=== PATIENT | female | born 1985 | race Caucasian/White ===

== ENCOUNTER 2022-02-04 12:56 | Outpatient (CLI) | payer OTHER ==
[2022-02-04 17:58] LABS: BASOPHILS % (AUTO) 0.2 %; EOSINOPHILS # (AUTO) 0.2 10^3/uL (0.0-0.7); EOSINOPHILS % (AUTO) 2.2 %; HGB - HEMOGLOBIN 13.6 g/dL (12.0-16.0); LYMPHOCYTES # (AUTO) 1.9 10^3/uL (1.5-3.5); LYMPHOCYTES % (AUTO) 19.5 %; MEAN CORPUSCULAR HEMOGLOBIN 28.3 pg (27.0-31.0); MEAN CORPUSCULAR VOLUME 83.2 fL (81.0-99.0); MEAN PLATELET VOLUME 10.9 fL (7.9-10.8); MONOCYTES # (AUTO) 0.4 10^3/uL (0.0-1.0); MONOCYTES % (AUTO) 3.8 %; NEUTROPHILS # (AUTO) 7.3 10^3/uL (1.5-6.6); PLT - PLATELET COUNT 272 10^3/uL (130-450); RED BLOOD COUNT 4.81 10^6/uL (4.20-5.40); RED CELL DISTRIBUTION WIDTH 12.9 % (12.0-15.0); WHITE BLOOD COUNT 9.9 x10^3/uL (4.8-10.8)
[2022-02-05 03:08] LABS: HBsAG SCREEN Negative (Negative); HIV SCREEN 4TH GENERATION Non Reactive (Non Reactive)
[2022-02-05 07:08] LABS: HCV AB <0.1 s/co ratio (0.0-0.9)
[2022-02-05 10:08] LABS: RPR Non Reactive (Non Reactive); VARICELLA-ZOSTER AB IGG 2671 index (Immune >165)
== END 2022-02-04 12:57 | disposition home or self-care (01) ==
LOC: LAB.N 12:56
PROVIDERS: ATTEND Nurse Practitioner Obstetrics & Gynecology
DX: Z36.89 Encounter for other specified antenatal screening (principal)
CPT/HCPCS: 36415; 85025; 86592; 86762; 86787; 86803; 86850; 86900; 86901; 87340; 87389

== ENCOUNTER 2022-03-15 12:21 | Outpatient (CLI) | payer OTHER ==
[2022-03-18 20:07] LABS: AFP MOM 0.59 (.); AFP VALUE 30.6 ng/mL (.); DIA MOM 1.57 (.); DIA VALUE 264.26 pg/mL (.); DSR (BY AGE) 1 IN 171 (.); DSR (SECOND TRIMESTER) 1 IN 43 (.); GEST. AGE ON COLLECTION DATE 18.7 WEEKS (.); GESTAT. AGE METHOD EDD (.); HCG MOM 1.72 (.); HCG VALUE 51489 mIU/mL (.); INSULIN DEP DIABETES No (.); MATERNAL AGE AT EDD 37.4 yr (.); MULTIPLE GESTATION No (.); OPEN SPINA BIFIDA RISK 1 IN 10000 (.); RACE Caucasian (.); RESULTS Report (.); TEST RESULTS *Screen Positive* (.); TRISOMY 18 RISK Not increased (.); UE3 VALUE 1.59 ng/mL (.); WEIGHT 142 lbs (.)
== END 2022-03-15 12:22 | disposition home or self-care (01) ==
LOC: LAB.N 12:21
PROVIDERS: ATTEND Nurse Practitioner Obstetrics & Gynecology
DX: Z13.79 Encounter for other screening for genetic and chromosomal anomalies (principal)
CPT/HCPCS: 36415; 81511

== ENCOUNTER 2022-03-21 14:59 | Outpatient (CLI) | payer OTHER ==
--- NOTE | 2022-03-22 13:23 | Ultrasound Report ---
PROCEDURE: OB Detailed Eval INDICATIONS: SUPERVISION OF OUTSIDE/PRIOR DATING DATA: Last menstrual period (LMP): 11/04/2021. LMP-based estimated date of delivery (CODEY): 08/11/2022. First dating scan (date and location): 01/21/2022, [facility]. Estimated date of delivery (CODEY) from first dating scan: 08/12/2022. The below data below was generated using the clinical CODEY of 08/11/2022 TECHNIQUE: Real-time scanning was performed of the fetus, with image documentation and biometric measurements. Endovaginal scanning: Not performed COMPARISON: None. FINDINGS: General: A single living intrauterine gestation is present. Presentation: Vertex Placenta: Placental position is posterior, without previa. Amniotic fluid index: 18.0 cm, normal for gestational age. heart rate: 153 beats per minute. Maternal cervical canal: Closed and 4.6 cm long; normal length is 2.5 cm or more. biometrics: Biparietal diameter: 4.5 cm, 19 weeks, 5 days Head circumference: 16.3 cm, 19 weeks, 4 days Abdominal circumference: 14.4 cm, 19 weeks, 5 days Femur length: 3.1 cm, 19 weeks, 4 days Estimated gestational age from clinical CODEY: 19 weeks, 3 days Composite gestational age from present scan: 19 weeks, 3 days Estimated weight and percentile: 306 g, 51st percentile Measurement variability in biometric dating: +/- 10 days from 12-20 weeks gestation, +/- 2 weeks from 20-30 weeks gestation, +/- 3 weeks at 30 weeks gestation or later. Anatomic survey: Neuro: Ventricles are normal at less than 10 mm. Cisterna magna is normal at 3-11 mm. Cerebellum i s normal in size and morphology. Nuchal skin fold: Normal at less than 6 mm between 14 and 20 weeks gestational age. Face: Nose and lips, facial profile are normal. Spine: No evidence for spina bifida. Heart: 4-chambered heart is present, with normal ventricular outflow tracts. Diaphragm: Diaphragm is intact. Stomach: Left-sided stomach is present. Kidneys: No hydronephrosis. Normal is less than 5 mm in 2nd trimester, less than 7 mm in 3rd trimester. Cord: 3 vessel cord has orthotopic insertion. Bladder: Normal in size. Extremities: All 4 extremities are visualized. IMPRESSION: 1. Single living intrauterine . 2. Appropriate growth and normal anatomy. 3. Closed cervix and normal amniotic fluid volume. Reviewed by: Domitila Adams MD on 03/22/2022 1:21 PM PST Approved by: Domitila Adams MD on 03/22/2022 1:21 PM PST Station ID: [id number]
== END 2022-03-21 15:00 | disposition home or self-care (01) ==
LOC: DI 14:59
PROVIDERS: ATTEND Nurse Practitioner Obstetrics & Gynecology
DX: Z34.02 Encounter for supervision of normal first pregnancy, second trimester (principal); Z36.89 Encounter for other specified antenatal screening

== ENCOUNTER 2022-03-23 09:48 | Outpatient (CLI) | payer OTHER | END 2022-03-23 09:49 | disposition home or self-care (01) | LOC: LAB 09:48 | PROVIDERS: ATTEND Nurse Practitioner Obstetrics & Gynecology | DX: Z01.89 Encounter for other specified special examinations (principal) | CPT/HCPCS: 36415 ==

== ENCOUNTER 2022-07-05 12:00 | Emergency (ER) | payer OTHER ==
[2022-07-05 12:18] VITALS: BP 110/72
[2022-07-05] MEDS ORDERED: SODIUM CHLORIDE 0.9% 1,000 ML IV STA (12:37)
[2022-07-05 12:46] LABS: BILIRUBIN,URINE NEGATIVE (NEGATIVE); GLUCOSE, URINE (UA) NEGATIVE (NEGATIVE); KETONES,URINE (UA) NEGATIVE (NEGATIVE); LEUKOCYTE ESTERASE, URINE NEGATIVE (NEGATIVE); NITRITE,URINE NEGATIVE (NEGATIVE); OCCULT BLOOD,URINE NEGATIVE (NEGATIVE); PH,URINE 6.5 PH (5.0-7.5); PROTEIN,URINE NEGATIVE (NEGATIVE); UROBILINOGEN,URINE 0.2 (NORMAL) E.U./dL (NORMAL)
[2022-07-05 12:49] LABS: CLARITY,URINE CLEAR (CLEAR)
--- NOTE | 2022-07-05 12:53 | ED Physician Documentation ---
History of Present Illness - Stated complaint Stated Complaint: SOA - Chief complaint Chief Complaint: General - History obtained from History obtained from: Patient - History of Present Illness Timing: Today Pain level max: 0 Pain level now: 0 - Additonal information Additional information: Patient is a 37-year-old female who presents to the emergency department with feeling lightheaded, dizzy and mildly short of breath today at work. She states that she is approximately 35 weeks . No complications with the . No fevers. No chills. She states she has had increased thirst recently. No history of diabetes. Does not use inhalers. She does not vape. She does not smoke. Review of Systems Constitutional: denies: Fever, Chills Nose: denies: Rhinorrhea / runny nose, Congestion Throat: denies: Sore throat Cardiac: denies: Chest pain / pressure Respiratory: denies: Cough GI: reports: Abdominal Pain (states felt a "jamei ascencio contraction" this morning. no vaginal bleeding or fluid leakage.). denies: Vomiting, Diarrhea Skin: denies: Rash Musculoskeletal: denies: Neck pain, Back pain PD PAST MEDICAL HISTORY - Past Medical History Past Medical History: No - Past Surgical History Past Surgical History: No - Allergies Allergies/Adverse Reactions: Allergies Allergy/AdvReac Type Severity Reaction Status Date / Time Sulfa (Sulfonamide Allergy Intermediate Unknown Verified 07/05/22 12:18 Antibiotics) PD ED PE NORMAL - Vitals Vital signs reviewed: Yes - General General: Alert and oriented X 3, No acute distress - HEENT HEENT: PERRL, Moist mucous membranes, Pharynx benign - Neck Neck: Supple, no meningeal sign - Cardiac Cardiac: RRR, No murmur, Strong equal pulses - Respiratory Respiratory: No respiratory distress, Clear bilaterally - Abdomen Abdomen: Soft, Non tender, Non distended - Back Back: No CVA TTP, No spinal TTP - Derm Derm: Warm and dry, No rash - Extremities Extremities: No edema, No calf tenderness / cord - Neuro Neuro: Alert and oriented X 3, distribution coordinator 2-12 intact, No motor deficit, No sensory deficit, Normal speech, Other (Normal cerebellar tests. Normal gait) Eye Opening: Spontaneous Motor: Obeys Commands Verbal: Oriented GCS Score: 15 - Psych Psych: Normal mood, Normal affect Results - Vitals Vitals: Vital Signs - 24 hr 07/05/22 12:16 Temperature 37.2 C Heart Rate 91 Respiratory 20 Rate Blood Pressure 110/72 O2 Saturation 97 Oxygen O2 Source Room air - EKG (time done) 1303 EKG releavant findings:: EKG personally interpreted by author of this note. Relevant findings are: Rate: Rate (enter#) (81) Rhythm: NSR [place]: Normal Intervals: Normal [place] QRS: Normal Ischemia: Normal ST segments - Labs Labs: Laboratory Tests 07/05/22 07/05/22 07/05/22 12:41 12:58 12:58 WBC 11.5 H RBC 4.43 Hgb 11.4 L Hct 35.2 L MCV 79.5 L MCH 25.7 L MCHC 32.4 RDW 14.1 Plt Count 269 MPV 10.1 Neut # (Auto) 8.7 H Lymph # (Auto) 2.0 [place] # (Auto) 0.6 Eos # (Auto) 0.2 Baso # (Auto) 0.0 Absolute Nucleated RBC 0.00 Nucleated RBC % 0.0 Sodium 134 L Potassium 3.8 Chloride 103 Carbon Dioxide 21 Anion Gap 10.0 BUN 11 Creatinine 0.4 Estimated GFR (MDRD) 180 Glucose 88 Calcium 9.4 Total Bilirubin 1.0 AST 20 ALT 13 Alkaline Phosphatase 111 Total Protein 6.9 Albumin 3.1 L Globulin 3.8 Albumin/Globulin Ratio 0.8 L Lipase 34 Urine Color YELLOW Urine Clarity CLEAR Urine pH 6.5 Ur Specific Sod <=1.005 Urine Protein NEGATIVE Urine Glucose (UA) NEGATIVE Urine Ketones NEGATIVE Urine Occult Blood NEGATIVE Urine Nitrite NEGATIVE Urine Bilirubin NEGATIVE Urine Urobilinogen 0.2 (NORMAL) Ur Leukocyte Esterase NEGATIVE Ur Microscopic Review NOT INDICATED Urine Culture Comments NOT INDICATED PD Medical Decision Making - ED course Complexity details: reviewed results, re-evaluated patient, considered differential, d/w patient ED course: CBC shows a mild leukocytosis, consistent with . Mild anemia. Chemistry shows a mild hyponatremia. Urinalysis does not show any acute abnormalities. Given IV fluids and does feel better. OB came to the emergency department and monitor to the mother and fetus. There is no evidence of active labor at this time. We will have the patient rest today at home and follow-up with her OB for further care. Patient is very well-appearing, nontoxic. Afebrile. No hypoxia. No respiratory distress. No evidence of PE. No chest pain. Patient counseled regarding signs and symptoms for which I believe and urgent re-evaluation would be necessary. Patient with good understanding of and agreement to plan and is comfortable going home at this time This document was made in part using voice recognition software. While efforts are made to proofread this document, sound alike and grammatical errors may occur. Departure - Departure Disposition: 01 Home, Self Care Clinical Impression: Light-headed feeling Condition: Good Instructions: ED Dizziness UKO Follow-Up: Soraida Mayfield CNM, [employer] [Provider Admit Priv/Credential] - Within 1 week Comments: The cause of your symptoms is unclear today. Your laboratory testing, electrolytes, urinalysis and EKG did not show any acute abnormalities. OB states that you do not show any signs of labor. Please follow-up with your OB for further care. Return if you worsen. Forms: Activity restrictions Discharge Date/Time: 07/05/22 14:00
[2022-07-05 13:05] LABS: BASOPHILS % (AUTO) 0.2 %; EOSINOPHILS # (AUTO) 0.2 10^3/uL (0.0-0.7); EOSINOPHILS % (AUTO) 1.7 %; HCT - HEMATOCRIT 35.2 % (37.0-47.0); HGB - HEMOGLOBIN 11.4 g/dL (12.0-16.0); LYMPHOCYTES % (AUTO) 17.2 %; MEAN CORPUSCULAR HEMOGLOBIN 25.7 pg (27.0-31.0); MEAN CORPUSCULAR HGB CONC 32.4 g/dL (32.0-36.0); MEAN CORPUSCULAR VOLUME 79.5 fL (81.0-99.0); MEAN PLATELET VOLUME 10.1 fL (7.9-10.8); MONOCYTES # (AUTO) 0.6 10^3/uL (0.0-1.0); MONOCYTES % (AUTO) 4.9 %; NEUTROPHILS # (AUTO) 8.7 10^3/uL (1.5-6.6); NEUTROPHILS % (AUTO) 75.4 %; PLT - PLATELET COUNT 269 10^3/uL (130-450); RED BLOOD COUNT 4.43 10^6/uL (4.20-5.40); RED CELL DISTRIBUTION WIDTH 14.1 % (12.0-15.0); WHITE BLOOD COUNT 11.5 x10^3/uL (4.8-10.8)
[2022-07-05 13:17] LABS: ALBUMIN 3.1 g/dL (3.2-5.5); ALBUMIN/GLOBULIN RATIO 0.8 (1.0-2.2); CALCIUM 9.4 mg/dL (8.5-10.3); CREATININE 0.4 mg/dL (0.4-1.0); POTASSIUM 3.8 mmol/L (3.5-5.0); TOTAL PROTEIN 6.9 g/dL (6.7-8.2)
--- NOTE | 2022-07-08 14:39 | PROCEDURE REPORT ---
- HPI Diagnosis/Indication for NST: Other Current EDU 08/11/22 Gestation 34 Weeks and 5 Days 4 Para 2 Vital Signs Temperature 37.2 C 07/05/22 12:16 Heart Rate 91 07/05/22 12:16 Respiratory Rate 20 07/05/22 12:16 Blood Pressure 110/72 07/05/22 12:16 O2 Saturation 97 07/05/22 12:16 Temperature 37.2 C 07/05/22 12:16 Heart Rate 91 07/05/22 12:16 Respiratory Rate 20 07/05/22 12:16 Blood Pressure 110/72 07/05/22 12:16 O2 Saturation 97 07/05/22 12:16 If not protocol: Oxygen Flow, liters/minute - NST Procedure NST Procedure Start Date 07/05/22 Start Time 12:30 Stop Time 12:56 Vibroacoustic Stimulation Used No Patient States Movement Yes - Results and Plan Plan: NST reactive. FHR baseline 130s, moderate variability, + accels, no decels No contractions appreciated via tocometry
== END 2022-07-05 14:00 | disposition home or self-care (01) ==
LOC: ED 12:00
DX: O26.893 Other specified pregnancy related conditions, third trimester (principal); R42 Dizziness and giddiness; Z3A.35 35 weeks gestation of pregnancy
CPT/HCPCS: 36415; 80053; 81001; 81003; 83690; 85025; 87086; 93005; 99283; 99284

== ENCOUNTER 2022-08-12 10:13 | Inpatient (IN) | payer OTHER ==
[2022-08-12] MEDS ORDERED: OXYTOCIN 10 UNIT/ML VIAL ONE (11:12)
[2022-08-12] MEDS ORDERED: TRANEXAMIC ACID IN NACL 1,000 MG/100 ML BAG IV PRN (11:43)
[2022-08-12] MEDS ORDERED: OXYTOCIN 10 UNIT/ML VIAL IM PRN (11:43)
[2022-08-12] MEDS ORDERED: hydrALAZINE INJ 20 MG/ML VIAL IVP PRN ×2 (11:43)
[2022-08-12] MEDS ORDERED: miSOPROStoL 200 MCG TABLET PR PRN (11:43)
[2022-08-12] MEDS ORDERED: CARBOPROST TROMETHAMINE 250 MCG/ML AMP IM PRN (11:43)
[2022-08-12] MEDS ORDERED: LABETALOL 20 MG/4 ML SYRINGE IVP PRN ×3 (11:43)
[2022-08-12] MEDS ORDERED: METHYLERGONOVINE 0.2 MG/ML VIAL IM PRN (11:43)
[2022-08-12] MEDS ORDERED: lidocaine 1% 20 ML MDV ID PRN (11:43)
[2022-08-12] MEDS ORDERED: NIFEdipine 10 MG CAPSULE PO PRN (11:43)
[2022-08-12] MEDS ORDERED: OXYTOCIN/SODIUM CHLORIDE 500 ML IV PRN (11:43)
[2022-08-12] MEDS ORDERED: TERBUTALINE 1 MG/ML VIAL SUBQ PRN (11:43)
[2022-08-12] MEDS ORDERED: SODIUM CHLORIDE FLUSH 0.9% 10 ML SYRINGE IVP PRN (11:43)
[2022-08-12] MEDS ORDERED: fentaNYL 100 MCG/2 ML VIAL IVP PRN (11:43)
[2022-08-12] MEDS ORDERED: miSOPROStoL 200 MCG TABLET BC PRN (11:43)
[2022-08-12] MEDS ORDERED: HYDROCORTISONE 1% CREAM 28 GM TUBE PR PRN (11:58)
[2022-08-12] MEDS ORDERED: WITCH HAZEL/GLYCERIN 1 PAD TOP PRN (11:58)
[2022-08-12] MEDS ORDERED: SODIUM CHLORIDE FLUSH 0.9% 10 ML SYRINGE IVP SCH (12:00)
--- NOTE | 2022-08-12 12:10 | DELIVERY NOTE ---
Delivery Note - Labor Labor: positive: Spontaneous - Delivery Method Delivery Method: positive: Spontaneous vaginal delivery - Presentation Presentation: positive: Vertex, CARLENE - left occiput anterior - Nuchal Cord Nuchal Cord: positive: Present - Amniotic Fluid Description Amniotic Fluid Description: positive: Clear - Episiotomy Type Episiotomy Type: positive: None - Laceration Laceration: positive: None - Delivery Outcome Delivery Outcome: positive: Livebirth - : positive: Placed in direct skin contact with mother, Stimulated, Warmed, [place] used [place] sex: positive: Male - Cord Cord: positive: 3 vessels - Placenta Placenta: positive: Intact, Spontaneous - Estimated Blood Loss Estimated Blood Loss (in cc): 100 - Post Delivery Events Post Delivery Events: positive: No post delivery events - Delivery Comments (Free Text/Narrative) Delivery Comments (Free Text/Narrative): : This 37yo @ 40.1wks gestation by LMP c/w 11.0wks U/S who presented on 08/12/2022 in active labor. Cervix was 7/100/-2 and vertex with intact membranes. FHR pattern demonstrated Category I pattern throughout labor. Normal labor course. SROM occurred at 1114 and was noted to be a large amount of clear fluid. Pt progressed to c/c/ and spontaneously pushing at approximately 1120. Normal SVB of viable male on 08/12/2022 @ 1124. Nuchal cord x 1 was delivered through. The was placed on maternal abdomen, stimulated, dried, and placed skin to skin. Apgars were 8/9 at 1 and 5 minutes respectively. The umbilical cord was allowed to stop pulsating at which time it was doubly clamped by CNM and cut by FOB. Cord blood was obtained. Placenta delivered spontaneously and intact at 1146. EBL 100mL. Fourth stage: Uterine fundus firm and there is no excessive bleeding. The perineum, vagina, and cervix were inspected and noted to be intact. initiated. Family bonding well. Both mother and baby were left in stable condition.
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
[2022-08-12] MEDS: ACETAMINOPHEN 500 MG TABLET PO SCH (21:09)
[2022-08-12] MEDS: LACTATED RINGERS 1,000 ML IV SCH (21:10)
[2022-08-12] MEDS: DOCUSATE SODIUM 100 MG CAPSULE PO SCH (21:10)
[2022-08-12] MEDS: IBUPROFEN 800 MG TABLET PO SCH (21:10)
[2022-08-13] MEDS: IBUPROFEN 800 MG TABLET PO SCH ×3 (02:46→11:08)
[2022-08-13] MEDS: ACETAMINOPHEN 500 MG TABLET PO SCH ×2 (06:28→11:02)
[2022-08-13] MEDS: LACTATED RINGERS 1,000 ML IV SCH ×2 (07:56→11:01)
[2022-08-13 10:00] VITALS: BP 127/82
[2022-08-13] MEDS: DOCUSATE SODIUM 100 MG CAPSULE PO SCH (11:08)
--- NOTE | 2022-08-13 15:30 | Labor Flowsheet ---
Labor Flowsheet Datetime Report Generated by CPN: 08/13/2022 15:29 Datetime: 08/13/2022 09:57 VITAL SIGNS NBP Sys/Sarah/Mean (mmHg): 127 : 82 : 92 Pulse: 90 Datetime: 08/12/2022 22:59 SpO2 (%): 99 Datetime: 08/12/2022 15:30 VAGINAL EXAM Membranes Ruptured Date/Time: 08/12/2022 11:10
--- NOTE | 2022-08-16 17:42 | Discharge Plan ---
Discharge Plan Problem Reviewed?: Yes Disposition: Home, Self Care Condition: Good Diet: Regular Activity Restrictions: No Restrictions Shower Restrictions: No Driving Restrictions: No Weight Bearing: Full Weight Instruction Topics: Vaginal After No Smoking: If you smoke, Please STOP! Call for help. Follow-up with: Soraida Mayfield CNM, ARNP [Provider Admit Priv/Credential] -
--- NOTE | 2022-08-16 17:50 | DISCHARGE SUMMARY ---
Discharge Summary Condition at Discharge: Good Discharge Disposition: 01 Home, Self Care - HOSPITAL COURSE Hospital Course: Date of Admission: 08/12/2022 Date of Discharge: 08/13/2022 Diagnosis on Admission: 1. 37yo @ 40.1wks gestation 2. Active labor 3. FHR Category I 4. GBS negative Diagnosis on Discharge: 1. 37yo PPD#1 s/p TSVB viable male 2. 3. Normal recovery Brief History: She is a patient of [facility] who presented on 08/16/2022 in active labor. She was found to contract every 2-4 minutes and her SVE was 7/100/-2 and vertex with intact membranes. FHR pattern demonstrated Category I pattern throughout labor. She was admitted for expectant management. She progressed spontaneously to deliver a viable male on 08/12/2022 at 1124 over intact perineum. Apgars were 8/9 at 1 and 5 minutes respectively. EBL 1 00mL. She has been doing well in her course. She is ambulating and tolerating a regular diet. She is urinating without difficulty and her lochia is normal. Her pain is well controlled with oral medications. She is without difficulty and she is bonding well with her baby. She will be discharged home today on day #1 with instructions to continue taking her prenat al vitamin while and to continue taking ibuprofen and tylenol over the counter as needed for pain management. She intends to follow up with myself at [facility] in 1 week for routine care or sooner if needed. She has been given precautions to call if she has any worsening fevers, chills, abdominal pain, increased vaginal bleeding or foul smelling vaginal loch ia. Physical exam: Normocephalic, atraumatic. Heart RRR w/o M/G/R, lungs CTAB, abdomen soft and nontender. Perineum intact, light lochia rubra. Mood is good. - ALLERGIES Allergies/Adverse Reactions: Allergies Allergy/AdvReac Type Severity Reaction Status Date / Time Sulfa (Sulfonamide Allergy Intermediate Unknown Verified 07/05/22 12:18 Antibiotics)
== END 2022-08-13 14:56 | disposition home or self-care (01) | DRG 807 ==
LOC: WFO 10:13 → FBP 10:15 → WFO 11:42 → FBP 11:43
PROVIDERS: ADMIT Nurse Practitioner Obstetrics & Gynecology; ATTEND Nurse Practitioner Obstetrics & Gynecology
PROC: 10E0XZZ Delivery of Products of Conception, External Approach (ICD-10-PCS; principal; 2022-08-12)
DX: O69.81X0 Labor and delivery complicated by cord around neck, without compression, not applicable or unspecified (principal); Z37.0 Single live birth; Z3A.40 40 weeks gestation of pregnancy
CPT/HCPCS: 99215; A9270

== ENCOUNTER 2022-11-17 09:50 | Outpatient (CLI) | payer OTHER ==
--- NOTE | 2022-11-17 10:26 | XRAY Report ---
PROCEDURE: Lumbar Spine 2 View INDICATIONS: RADICULOPATHY TECHNIQUE: 2 views of the lumbar spine were acquired. COMPARISON: None. FINDINGS: Bones: 5 [id number] vertebrae are present. Normal alignment of the lumbar spine. No vertebral b usha compression fractures. No suspicious bony lesions. Soft tissues: Overlying bowel gas pattern is normal. No suspicious soft tissue calcifications. IMPRESSION: No significant degenerative changes. No acute compression fractures. Reviewed by: Jerel Temple MD on 11/17/2022 10:25 AM PDT Approved by: Jerel Temple MD on 11/17/2022 10:25 AM PDT Station ID: [id number]
--- NOTE | 2022-11-18 10:51 | XRAY Report ---
PROCEDURE: Knee 3 View RT INDICATIONS: KNEE PAIN TECHNIQUE: 3 views of the right knee(s) were acquired. COMPARISON: None. FINDINGS: Bones: No fractures or dislocations. No patella subluxation. Joint spaces are well-preserved. No blanco spicious bony lesions. Soft tissues: No knee joint effusion. No suspicious soft tissue calcifications or masses. IMPRESSION: No acute bony abnormality. No significant joint effusion. Joint spaces are well-preserved. Reviewed by: Will Lo MD on 11/18/2022 10:50 AM PDT Approved by: Will Lo MD on 11/18/2022 10:50 AM PDT Station ID: [id number]
== END 2022-11-17 09:51 | disposition home or self-care (01) ==
LOC: DI 09:50
PROVIDERS: ATTEND Physician Assistant Medical
DX: M54.16 Radiculopathy, lumbar region (principal); M25.561 Pain in right knee

== ENCOUNTER 2023-02-20 09:25 | Emergency (ER) | payer OTHER ==
[2023-02-20 09:59] VITALS: BP 117/68; O2SAT 97
--- NOTE | 2023-02-20 10:16 | ED Physician Documentation ---
PD HPI OPHTHO - Stated complaint Stated Complaint: RT EYE LAC - Chief complaint Chief Complaint: Heent - History obtained from History obtained from: Patient - Additional information Additional information: Patient is a 37-year-old female presenting for evaluation of right eye irritation for the past 2 days. Patient states that on Monday she accidentally hit her eye with a piece of copper wire that she was using to make a project with [employer] ???. She has been told that she has astigmatism but does not wear contacts or glasses. She says the eye has been photosensitive since that time and she has had some tearing from the eye including crusty yellow discharge this morning that she needed to wash away with a washcloth. Review of Systems Eyes: reports: Photophobia, Irritation PD PAST MEDICAL HISTORY - Past Medical History Past Medical History: Yes Musculoskeletal: Other Other Past Medical History: Spondylosis - Past Surgical History Past Surgical History: No - Present Medications Home Medications: Ambulatory Orders Medication Instructions Recorded Confirmed Erythromycin Base [Erythromycin 1 appful OP 5XD 7 Days #1 gm 02/20/23 Ophthalmic Ointment] Ibuprofen [Motrin] 1 tablet PO Q8H PRN 02/20/23 02/20/23 Oxycodone HCl/Acetaminophen 1 each PO DAILY 02/20/23 02/20/23 [Percocet 5-325 mg Tablet] - Allergies Allergies/Adverse Reactions: Allergies Allergy/AdvReac Type Severity Reaction Status Date / Time Sulfa (Sulfonamide Allergy Intermediate Unknown Verified 02/20/23 09:45 Antibiotics) - Social History Does the pt smoke?: No Smoking Status: Never smoker PD ED PE NORMAL - General General: Alert and oriented X 3, No acute distress, Well developed/nourished - HEENT HEENT: Atraumatic, PERRL, EOMI, Moist mucous membranes, Pharynx benign - Neck Neck: Supple, no meningeal sign - Respiratory Respiratory: No respiratory distress - Derm Derm: Warm and dry - Neuro Neuro: Normal speech PD ED PE EXPANDED - Eyes Eyes: PERRL, EOMI, Normal eyelids, No eyelid FB (everted), Injected conj/sclera, Normal corneas, Anterior chambers clear, Other (R eye IOP WNL (15)). No: Eyelid injury, Eyelid swelling, Eyelid erythema, Subconj hemorrhage, Corneal FB, Corneal abrasion, Corneal ulcer, Fluorescein uptake, Hyphema Results - Vitals Vitals: Vital Signs - 24 hr 02/20/23 09:30 Temperature 36 C L Heart Rate 83 Respiratory 16 Rate Blood Pressure 117/68 O2 Saturation 97 Oxygen O2 Source Room air PD Medical Decision Making - ED course ED course: Patient is a 37-year-old female presenting for evaluation of right eye irritation. No signs of corneal abrasion or ulceration. No signs of foreign body. After receiving 2 drops of proparacaine into the right eye patient reports improvement in her vision and visual acuity was repeated and is significantly improved.No signs of globe injury. Normal intraocular pressure. She does have significant conjunctival injection And has had crusting and drainage from the eye. Will cover with antibiotic ointments. She does not wear contacts. Have also recommended that she have close follow-up with ophthalmology. She is also advised on strict return precautions. No signs of periorbital or orbital cellulitis at this time. Departure - Departure Disposition: 01 Home, Self Care Clinical Impression: Irritation of right eye Condition: Stable Instructions: ED Conjunctivitis Nonspecific Follow-Up: Joshua Bunn MD [Provider Admit Priv/Credential] - Within 3 Days Prescriptions: Erythromycin Base [Erythromycin Ophthalmic Ointment] 1 appful OP 5XD 7 Days #1 gm Comments: I have sent a prescription for an antibiotic ointment to [facility] in [place]. I am hopeful this will help with the discharge you are having from the eye. At this time I do not see signs of a scratch or an abrasion or ulcer on your cornea. The pressure in your eye is also normal and I also do not see signs of a foreign body in the eye. I do recommend you have close follow-up with an tilt tray driver and have listed the name of 1 here To call today to arrange for close follow-up early this week as you have had trauma to the eye. Please return to the emergency department if you develop any worsening symptoms such as worsening vision, redness, swelling, increased pain or have any other concerns. Forms: PCP List Discharge Date/Time: 02/20/23 10:22
== END 2023-02-20 10:22 | disposition home or self-care (01) ==
LOC: ED 09:25
DX: H57.89 Other specified disorders of eye and adnexa (principal)
CPT/HCPCS: 99282; 99283

== ENCOUNTER 2023-06-26 20:01 | Emergency (ER) | payer OTHER ==
[2023-06-26 20:18] VITALS: O2SAT 97
--- NOTE | 2023-06-26 20:56 | ED Physician Documentation ---
PD HPI URI - Stated complaint Stated Complaint: COUGH/CONGESTION - Chief complaint Chief Complaint: Resp - History obtained from History obtained from: Patient - History of Present Illness Timing - onset: How many weeks ago (1) Timing duration: Weeks (1) Timing details: Abrupt onset, Still present (was improving some but then increaseed cough and sputum, with marked pains in chest muscles with coughing, unrelenting cough at times.) Associated symptoms: Fever, Chills, Nasal congestion, Productive cough, Chest pain, Dyspnea. No: Sore throat Contributing factors: No: Immunocompromised, COPD / asthma Similar symptoms before: Has not had sx before PD PAST MEDICAL HISTORY - Past Medical History Past Medical History: Yes Musculoskeletal: Fibromyalgia - Past Surgical History Past Surgical History: No - Present Medications Home Medications: Ambulatory Orders Medication Instructions Recorded Confirmed Albuterol 2.5 mg INH Q4H PRN #30 ml 06/26/23 Albuterol Sulf [Ventolin Hfa 1 - 2 puffs INH Q4HR PRN #1 each 06/26/23 Inhaler] Amoxicillin 500 mg PO TID #15 cap 06/26/23 Benzonatate [Tessalon] 100 mg PO TID PRN #20 cap 06/26/23 Cyclobenzaprine [Flexeril] 5 mg PO TID PRN 06/26/23 06/26/23 HYDROcod/ACETAM 5/325 [Acworth 5/325] 1 ea PO Q6H PRN #10 tablet 06/26/23 dexAMETHasone [Decadron] 4 mg PO DAILY #5 tablet 06/26/23 - Allergies Allergies/Adverse Reactions: Allergies Allergy/AdvReac Type Severity Reaction Status Date / Time Sulfa (Sulfonamide Allergy Intermediate Unknown Verified 06/26/23 20:11 Antibiotics) onion Allergy Itching Verified 06/26/23 20:11 tomato Allergy Itching Verified 06/26/23 20:11 - Social History Does the pt smoke?: No Smoking Status: Never smoker Does the pt drink ETOH?: No PD ED PE NORMAL - Vitals Vital signs reviewed: Yes - General General: Alert and oriented X 3, Well developed/nourished, Other (grimaces in pain when coughs due to chest muscles. ) - HEENT HEENT: Pharynx benign - Neck Neck: Supple, no meningeal sign, No adenopathy - Cardiac Cardiac: RRR (regular and mild tachycardia. ), No murmur - Respiratory Respiratory: No respiratory distress. No: Clear bilaterally (some central wheezing noted with cough. No coarse sounds. ) - Abdomen Abdomen: Soft, Non tender - Derm Derm: Normal color, Warm and dry - Extremities Extremities: No edema, No calf tenderness / cord Results - Vitals Vitals: Oxygen O2 Source Room air - Labs Labs: Laboratory Tests 06/26/23 20:13 Nasal Adenovirus (PCR) NOT DETECTED Nasal B. parapertussis DNA (PCR) NOT DETECTED Nasal Coronavir 229E PCR NOT DETECTED Nasal Coronavir HKU1 PCR NOT DETECTED Nasal Coronavir NL63 PCR NOT DETECTED Nasal Coronavir OC43 PCR NOT DETECTED Nasal Enterovir/Rhinovir PCR DETECTED A Nasal Influenza B PCR NOT DETECTED Nasal Influenza A PCR NOT DETECTED Nasal Parainfluen 1 PCR NOT DETECTED Nasal Parainfluen 2 PCR NOT DETECTED Nasal Parainfluen 3 PCR NOT DETECTED Nasal Parainfluen 4 PCR NOT DETECTED Nasal RSV (PCR) NOT DETECTED Nasal B.pertussis DNA PCR NOT DETECTED Nasal C.pneumoniae (PCR) NOT DETECTED Justin Human Metapneumo PCR NOT DETECTED Nasal M.pneumoniae (PCR) NOT DETECTED Nasal SARS-CoV-2 (PCR) NOT DETECTED PD Medical Decision Making - ED course Complexity details: reviewed results (positive for rhinovirus, but I would also still think likely at this point has developed a sedoncary bronchitis. so antibiotics as well. ), considered differential (has had URI symptoms for a week or so, with now increased cough and sputum production. Seems initial viral syndrome but consider secondary bronchitis has developed with sumptoms. Can treat with MDI and tessalon, hyedrocodone for cough and pains, as she has had marked chest pains with coughing.), d/w patient Departure - Departure Disposition: 01 Home, Self Care Clinical Impression: Acute bronchitis due to Rhinovirus Condition: Stable Record reviewed to determine appropriate education?: Yes Instructions: ED URI Viral W Wheezing Follow-Up: Martina Casarez ARNP [Primary Care Provider] - Prescriptions: Albuterol Sulf [Ventolin Hfa Inhaler] 1 - 2 puffs INH Q4HR PRN #1 each PRN Reason: Shortness Of Air/Wheezing Albuterol 2.5 mg INH Q4H PRN #30 ml PRN Reason: Wheezing Amoxicillin 500 mg PO TID #15 cap dexAMETHasone [Decadron] 4 mg PO DAILY #5 tablet HYDROcod/ACETAM 5/325 [Acworth 5/325] 1 ea PO Q6H PRN #10 tablet PRN Reason: Pain Benzonatate [Tessalon] 100 mg PO TID PRN #20 cap PRN Reason: Cough Comments: Your respiratory viral panel test was positive for rhinovirus which does cause a lot of bronchial symptoms and wheezing. Not quite as bad as RSV but similar. He was negative for COVID and flu. I would have you use albuterol 4 times daily for the next several days to week to help with your breathing. Decadron to help with bronchial inflammation. Your symptoms are likely mostly viral although this could be the remnants of the virus initially. If you have developed bacterial bronchitis as well, then you likely will continue with symptoms and perhaps more sputum etc. If this evolves more bron chial, then add an antibiotic but at this point do the inhaler or nebulizer along with a steroid and medication for cough. I sent new prescriptions to preferred pharmacy. Forms: PCP List Discharge Date/Time: 06/26/23 22:38
[2023-06-26] MEDS: HYDROcod/ACETAM 5/325 MG TABLET PO STA (21:44)
[2023-06-26] MEDS: BENZONATATE 100 MG CAPSULE PO STA (21:44)
[2023-06-26] MEDS: dexAMETHasone 4 MG TABLET PO STA (21:44)
[2023-06-26] MEDS: ALBUTEROL NEB 2.5 MG/3 ML INH STA (21:55)
[2023-06-26 22:13] LABS: B. PARAPERTUSSIS- RESP PCR PAN NOT DETECTED; B. PERTUSSIS- RESP PCR PANEL NOT DETECTED; C. PNEUMONIAE- RESP PCR PANEL NOT DETECTED; CORONAVIRUS 229E-RESP PCR NOT DETECTED; CORONAVIRUS HKU1-RESP PCR NOT DETECTED; CORONAVIRUS NL63-RESP PCR NOT DETECTED; CORONAVIRUS OC43-RESP PCR NOT DETECTED; HUMAN METAPNEUMOVIRUS NOT DETECTED; INFLUENZA A- RESP PCR PANEL NOT DETECTED; INFLUENZA B - RESP PCR PANEL NOT DETECTED; M. PNEUMONIAE- RESP PCR PANEL NOT DETECTED; PARAINFLUENZA VIRUS 1 NOT DETECTED; PARAINFLUENZA VIRUS 2 NOT DETECTED; PARAINFLUENZA VIRUS 3 NOT DETECTED; PARAINFLUENZA VIRUS 4 NOT DETECTED; RHINOVIRUS/ENTEROVIRUS DETECTED; RSV- RESP PCR PANEL NOT DETECTED; SARS-CoV-2 -RESP PCR PANEL NOT DETECTED
[2023-06-26 22:41] VITALS: BP 110/71
== END 2023-06-26 22:38 | disposition home or self-care (01) ==
LOC: ED 20:01
DX: J20.6 Acute bronchitis due to rhinovirus (principal)
CPT/HCPCS: 87633; 94640; 94664; 99283; A9270; J8540